=== PATIENT | male | born 1990 | race Caucasian/White ===

== ENCOUNTER 2025-02-23 14:06 | Emergency (ER) | payer MEDICAID ==
[~2025-02-23] VITALS: Ht 180.3 cm; Wt 93.2 kg
[~2025-02-23 14:06] MED LIST: NO HOME MEDS
[2025-02-23 14:11] VITALS: BP 152/95; PULSE 103; RESP 16; O2SAT 99
--- NOTE | 2025-02-23 14:14 | Physician Documentation ---
History of Present Illness Chief Complaint: Abdominal Pain Stated Complaint: HERNIA Time Seen by MD: 14:13 Primary Medical Doctor: NONE HPI 44-year-old male presents to the ED with a complaint hernia in his abdomen. Denies any change into his bowel movements.; states he has had this bulging in his umbilicus for many years and never been evaluated for it. Day of Onset: Feb 23, 2025 Medication Reconciliation Allergies: Coded Allergies: No Known Allergies (Unverified , 02/23/25) Miscellaneous Medications Home Med List (No Home Medications), (Reported) Past Medical History Past Medical History: No Pertinent History Past Surgical History: noncontributory Alcohol Use: Occasionally Drug Use: methamphetamine, heroin Review of Systems All Other Systems at this time: Reviewed and Negative ROS As stated above in the HPI, otherwise all systems are reviewed and negative. Physical Exam Vital Signs: Temperature: 97.5, Source: Temporal, Heart Rate: 103, Respiratory Rate: 16, BP: 152/95, Pulse Oximetry: 99, Weight: 93.180 Oxygen Flow Rate: 0 Physical Exam General: Alert, no apparent distress. Gastrointestinal: Soft, nontender, nondistended. Bowels sounds present. Umbilical hernia Neurologic: Oriented x4. Psychiatric: Normal mood and affect. Skin: Normal color, warm and dry. No edema, no ecchymosis. Progress Results/Orders Results/Orders Vital Signs 02/23/25 14:11 Temp 97.5 Pulse 103 Resp 16 B/P (MAP) 152/95 Pulse Ox 99 O2 Flow Rate 0 Medical Decision Making Findings Patient was not triageand I was able to reduce the umbilical hernia without any difficulty. Patient reports improved symptoms. That although mostly reduced, US indicated there is a non-strangulated umbilical hernia. Differential Dx:Considerations: Include: AAA, Angina/AR, Aortic dissection, Appendicitis, Bowel obstruction, Cholangitis, Cholelithasis, Constipation, Diverticular disease, Esophageal rupture, Esophagitis, Gastritis/PUD, Gastroenteritis, GI hemorrhage, Hernia, Hepatitis, Inflammatory BD, Ischemic bowel, Pancreatitis, Porphyria, Testicular torsion, Trauma, intraabdominal, Urinary obstruction, Urinary tract infection, Urolithiasis, Other Departure Disposition: 01 HOME / SELF CARE / HOMELESS Impression: Primary Impression: Umbilical hernia Condition: Stable Discharge Instructions: Hernia, Adult, [id number] Additional Instructions: Discussed with the you it is important to get show or hernia evaluated for surgery. You may obtain a referral through the [facility] after you establish care there. Referrals: NO PRIMARY CARE PROVIDER (PCP) Education Educated: Patient Educated regarding: diagnosis Signature Scribe Signature: g Attestation: Scribed for El Jo Plaster Form Maker by El Avelar NP . 02/23/25 15:48 EL JO NP Feb 23, 2025 14:14
[2025-02-23 16:09] VITALS: TEMP 97.5
--- NOTE | 2025-02-23 16:25 | RADIOLOGY REPORT ---
Exam: US ULTRASOUND OF ABDOMEN Clinical History: umbilical hernia post reduction Comparison: None Technique: Targeted sonographic evaluation of the soft tissues of the umbilical region was obtained utilizing grayscale and color Doppler imaging. Findings/Impression: Small umbilical hernia is present. CT could be obtained to further evaluate if clinically indicated.
== END 2025-02-23 16:11 | disposition home or self-care (01) ==
LOC: ER 14:07
DX: K42.9 Umbilical hernia without obstruction or gangrene (principal); F15.90 Other stimulant use, unspecified, uncomplicated; F11.90 Opioid use, unspecified, uncomplicated; Z72.89 Other problems related to lifestyle
CPT/HCPCS: 76705; 99284

== ENCOUNTER 2025-03-25 15:27 | Emergency (ER) | payer MEDICAID ==
[~2025-03-25] VITALS: Ht 180.3 cm; Wt 92.4 kg
[2025-03-25 16:06] VITALS: BP 141/94; PULSE 97; RESP 16; TEMP 97.4; O2SAT 99
--- NOTE | 2025-03-25 16:10 | Physician Documentation ---
History of Present Illness General Stated Complaint: HERNIA Time Seen by MD: 16:09 Primary Medical Doctor: NONE History of Present Illness Initial Comments 34-year-old male reports a ventral hernia that self reducing at times. Seen recently emergency department reducible difficulty. He has been able to self reduce it since part emergency department multiple times yet reports today's has a bit of pain was unable to. No acute discomfort nausea or vomiting. Patient is seen in triage medical screening examination completed. No need for imaging to evaluate for obstruction. Medication Reconciliation Allergies: Coded Allergies: No Known Allergies (Unverified , 02/23/25) Miscellaneous Medications Home Med List (No Home Medications), (Reported) Past Medical History Past Medical History: No Pertinent History Past Surgical History: noncontributory Alcohol Use: Occasionally Drug Use: methamphetamine, heroin Review of Systems All Other Systems at this time: Reviewed and Negative GI: Reports: abdominal pain (Hernia) Physical Exam Physical Exam Vital Signs: RN Vital Signs have been reviewed: Yes General Appearance: alert, WD/WN, mild distress Head: normal inspection Face: normal inspection Pupils/EOM/Fundus: PERRLA Neck: non-tender Respiratory: no respiratory distress Chest: no accessory muscle use Cardiovascular: regular rate, rhythm Gastrointestinal: tenderness, other (Small 2 cm x 3 cm umbilical and ventral hernia) Back: normal inspection Extremities: normal range of motion Psychiatric: normal mood/affect Skin: normal color, warm/dry; No: jaundice Procedures Additional Procedures Additional Procedures: Other Procedure Note Procedure hernia reduction. Patient placed in Trendelenburg. With mild outpatient the ventral hernia was reduced without difficulty. Progress Results/Orders Results/Orders Vital Signs 03/25/25 16:06 Temp 97.4 Pulse 97 Resp 16 B/P (MAP) 141/94 Pulse Ox 99 O2 Flow Rate 0 Medical Decision Making Additional information obtaine: N/A Findings Patient will be placed in room for reduction of suspected ventral wall hernia. Medical screening exam completed. Hernia reduced one attempt with ease. Patient is stable for discharge aftercare instructions. Differential Diagnosis Incarcerated hernia, strangulated hernia, tumor mass. Departure Disposition: HOME / SELF CARE / HOMELESS Impression: Primary Impression: Umbilical hernia Qualified Codes: K42.9 - Umbilical hernia without obstruction or gangrene Condition: Improved Discharge Instructions: Hernia, Adult, [id number] Additional Instructions: He has follow up with the primary care physician for referral to surgeon for evaluation elective repair. Please obtain hernia belt. Please do self reducing maneuvers. Referrals: NO PRIMARY CARE PROVIDER (PCP) Education Educated: Patient Educated regarding: diagnosis, treatment, prognosis Signature Scribe Signature: . Attestation: . MARIBEL [facility] Mar 25, 2025 16:10
== END 2025-03-25 16:24 | disposition home or self-care (01) ==
LOC: ER 15:28
DX: K42.9 Umbilical hernia without obstruction or gangrene (principal); F15.90 Other stimulant use, unspecified, uncomplicated; F11.90 Opioid use, unspecified, uncomplicated; Z72.89 Other problems related to lifestyle
CPT/HCPCS: 99282; 99284

== ENCOUNTER 2025-03-31 13:49 | Emergency (ER) | payer MEDICAID ==
[~2025-03-31] VITALS: Ht 180.3 cm; Wt 92.2 kg
[2025-03-31 13:57] VITALS: BP 114/80; PULSE 76; TEMP 97; O2SAT 96
--- NOTE | 2025-03-31 14:06 | Physician Documentation ---
HPI ~ General Chief Complaint: Tooth Problem Stated Complaint: TOOTH PAIN Time Seen by MD: 14:00 Primary Medical Doctor: NONE History of Present Illness HPI Comment This is a 35-year-old male who presents with three days of left lower rear dental pain patient reports no fever or chills and reports no difficulty breathing or swallowing. Patient reports no other acute symptoms or concerns. Medication Reconciliation Allergies: Coded Allergies: No Known Allergies (Unverified , 03/31/25) Scheduled Amox Tr/Potassium Clavulanate (Augmentin 875-125 Tablet), 1 TAB PO Q12H Ibuprofen (Ibuprofen), 1 TAB PO Q8H Miscellaneous Medications Home Med List (No Home Medications), (Reported) Past Medical History Past Medical History: No Pertinent History Past Surgical History: noncontributory Alcohol Use: Occasionally Drug Use: methamphetamine, heroin Review of Systems ROS As stated above in the HPI, otherwise all systems are reviewed and negative. Physical Exam Vital Signs: Temperature: 97.0, Source: Temporal, Heart Rate: 76, Respiratory Rate: 16, BP: 114/80, Pulse Oximetry: 96, Weight: 92.200 Oxygen Flow Rate: 0 Physical Exam VITALS: Reviewed and as above. GENERAL: Alert, nontoxic appearing, no apparent distress. HEENT: Overall severe poor dentition, left lower rear molar severe decay with erythema gumline, no drainage, no fluctuance. No facial swelling, no submandibular swelling, no elevation of the tongue no drooling RESPIRATORY: No increased work of breathing, no respiratory distress, speaking in full clear sentences without muffled voice Progress Results/Orders Results/Orders Completed Orders - ROBERTA PETTY CLOCKMAKER APPRENTICE Ketorolac Trometh 15mg/Ml Vial (Toradol (03/31/25 14:10) Vital Signs 03/31/25 03/31/25 13:57 14:19 Temp 97.0 Pulse 76 Resp 16 16 B/P (MAP) 114/80 Pulse Ox 96 O2 Flow Rate 0 Medical Decision Making Additional information obtaine: N/A Findings This well appearing 35-year-old male presented with dental pain to the left lower rear molar. Based on history and physical exam I have low clinical suspicion for peritonsillar abscess, uvulitis, deep tissue space infection of the head/neck, or impending airway compromise. There was no submandibular swelling or elevation of the tongue, the uvula was midline, patient is able to swallow fluids and secretion without difficulty, there is no increased work of breathing or noisy breathing. Patient is otherwise well-appearing with remainder of physical exam benign and patient reporting no other acute symptoms or concerns. Patient will require follow up with a dentist and I have discussed this with the patient. Based on presentation I am concerned for odontogenic infection and antibiotic treatment with Augmentin is indicated. Pain control with non-narcotic medications is appropriate at this time. Patient is appropriate for outpatient follow up and has been provided follow up instructions, return to care precautions, and home care instructions which he verbalized understanding of. Differential Dx:Considerations: Include: Alveolar fracture, Alveolar osteitis, ANUG, Facial Cellulitis, Periapical abscess, Peridontal abscess, Pulpitis, Tooth avulsion, Tooth eruption, Tooth Fracture, Trigeminal neuralgia, Tooth subluxation, Other (Rashad's angina) Departure Time of Disposition: 14:07 Disposition: 01 HOME / SELF CARE / HOMELESS Impression: Primary Impression: Toothache Condition: Improved Discharge Instructions: Dental Pain Additional Instructions: Please follow up as soon as possible with a dentist. Please take the antibiotics as prescribed. You may use the prescribed ibuprofen up to 3 times a day as needed for pain, take this medication with food to avoid stomach upset, do not take this medication for the 1st 10 hours after discharge from hospital as you received a Toradol injection in the emergency department which replaces this case. Please follow up with your primary care provider in the next few days. Please return to the emergency department for any new or worsening concerning symptoms. Referrals: NO PRIMARY CARE PROVIDER (PCP) Prescriptions Ibuprofen (Ibuprofen) 800 Mg Tablet 1 TAB PO Q8H for pain for 10 Days, #30 TAB 0 Refills Prov: ROBERTA PETTY 03/31/25 Amox Tr/Potassium Clavulanate (Augmentin 875-125 Tablet) 1 Each Tablet 1 TAB PO Q12H for 7 Days, #14 TAB Prov: ROBERTA PETTY 03/31/25 Education Educated: Patient Educated regarding: diagnosis, treatment, prognosis, need for follow up Signature Scribe Signature: No scribe Attestation: The note accurately reflects work and decisions made by me.MARILU Saravia 04/01/25 01:29 Parts of this note were created using [employer]amb[employer] voice recognition software program. While efforts were made to correct any mistakes made by this voice recognition software program, nonsensical phrases may remain in this note. In addition, there may be errors and syntax, grammar, content and spelling. ROBERTA PETTY Mar 31, 2025 14:06
[2025-03-31] MEDS ORDERED: AMOX-117 PO (14:07)
[2025-03-31] MEDS ORDERED: IBUP-1986 PO (14:07)
[2025-03-31 14:19] VITALS: RESP 16
[2025-03-31] MEDS: ketorolac trometh 15mg/ml vial 15 MG/ML ML IM ONE (14:19)
== END 2025-03-31 14:25 | disposition home or self-care (01) ==
LOC: ER 13:50
DX: K08.89 Other specified disorders of teeth and supporting structures (principal); F15.90 Other stimulant use, unspecified, uncomplicated; F11.90 Opioid use, unspecified, uncomplicated; Z79.899 Other long term (current) drug therapy; Z72.89 Other problems related to lifestyle
CPT/HCPCS: 96372; 99283; J1885